=== PATIENT | male | born 1955 | race Caucasian/White ===

== ENCOUNTER 2017-08-28 16:34 | Emergency (ER) | payer BC ==
[2017-08-28 16:58] VITALS: BP 111/68
--- NOTE | 2017-08-28 17:47 | UC ---
Eye Complaint HPI - HPI Summary HPI Summary: 61 year old male presents with right eye pain/infection/corneal lesion. - History of Current Complaint Chief Complaint: UCEye Stated Complaint: RIGHT EYE COMPLAINT Time Seen by Provider: 08/28/17 17:41 Hx Obtained From: Patient Onset/Duration: Sudden Onset Timing: Constant Severity Initially: Moderate Severity Currently: Moderate - Allergies/Home Medications Allergies/Adverse Reactions: Allergies Allergy/AdvReac Type Severity Reaction Status Date / Time No Known Allergies Allergy Verified 08/28/17 16:57 Home Medications: Home Medications Aspirin [Aspirin 81 MG TAB] 81 mg PO EVERY OTHER DAY 08/28/17 [History Confirmed 08/28/17] Calcium Carbonate-Cholecalcife [Calcium 500 +D3 500-600 mg-Unit] 1 tab PO EVERY OTHER DAY 08/28/17 [History Confirmed 08/28/17] Lifeway Probiotic 240 ml PO DAILY 08/28/17 [History Confirmed 08/28/17] Multiple Vitamins W/ Minerals [Centrum Silver 50+Men] 1 tab PO EVERY OTHER DAY 08/28/17 [History Confirmed 08/28/17] PMH/Surg Hx/FS Hx/Imm Hx Previously Healthy: Yes - Surgical History Surgical History: Yes Surgery Procedure, Year, and Place: HERNIA REPAIR. [facility] - Family History Known Family History: Positive: None - Social History Alcohol Use: Rare Substance Use Type: None Smoking Status (MU): Never Smoked Tobacco Review of Systems Constitutional: Negative Skin: Negative Eyes: Eye Redness ENT: Negative Respiratory: Negative Cardiovascular: Negative Gastrointestinal: Negative Genitourinary: Negative Motor: Negative Neurovascular: Negative Musculoskeletal: Negative Neurological: Negative Psychological: Negative All Other Systems Reviewed And Are Negative: Yes Physical Exam Triage Information Reviewed: Yes Vital Signs: Initial Vital Signs Temp 36.2 C 08/28/17 16:49 Pulse 70 08/28/17 16:49 Resp 12 08/28/17 16:49 BP 111/68 08/28/17 16:49 Pulse Ox 97 08/28/17 16:49 Vital Signs Reviewed: Yes Eyes: Positive: Other: - right eye pterygium ENT Exam: Normal Dental Exam: Normal Neck exam: Normal Neck: Positive: 1 Respiratory Exam: Normal Cardiovascular Exam: Normal Abdominal Exam: Normal Musculoskeletal Exam: Normal Neurological Exam: Normal Psychological Exam: Normal Skin Exam: Normal Eye Complaint Course/Dx - Differential Dx/Diagnosis Provider Diagnoses: righht eye pterygium Discharge - Discharge Plan Condition: Stable Disposition: HOME Prescriptions: Polymyx/Trimethoprim OPTH* [Polytrim OPHTH*] 1 drop RIGHT EYE Q6H #1 btl Patient Education Materials: Conjunctivitis (ED) Referrals: Jean Marie Herrera MD [Medical Doctor] - Rey Huerta MD [Primary Care Provider] -
== END 2017-08-28 18:09 | disposition home or self-care (01) ==
LOC: UCCORT 16:34
DX: H11.001 Unspecified pterygium of right eye (principal)
CPT/HCPCS: 99202; G0463